=== PATIENT | male | born 1990 | race Caucasian/White ===

== ENCOUNTER 2025-05-27 02:54 | Emergency (ER) | payer OTHER, MEDICAID ==
[~2025-05-27] VITALS: Ht 170.2 cm; Wt 90.3 kg
[2025-05-27] MEDS ORDERED: MORPHINE 2 MG/ML 1 ML VIAL IV PRN (03:25)
[2025-05-27 03:42] LABS: BASO # 0.1 10^3/uL (0.0-0.2); BASO % 0.6 % (0.0-1.0); EOS # 0.0 10^3/uL (0.0-0.5); EOS % 0.0 % (0.0-3.0); LYMPH # 0.7 10^3/uL (1.5-5.0); LYMPH % 7.7 % (24.0-44.0); MONO # 0.6 10^3/uL (0.0-0.8); MONO % 7.2 % (2.0-8.0); NEUTROPHILS # 7.5 10^3/uL (1.5-8.5); NEUTROPHILS % 84.2 % (36.0-66.0); PLATELET COUNT, AUTOMATED 202 10^3/uL (150-450)
[2025-05-27 04:07] LABS: ALT/SGPT 24.0 U/L (7.0-40); AST/SGOT 31.0 U/L (<34); CALCIUM LEVEL 8.5 MG/DL (8.5-10.1); CARBON DIOXIDE LEVEL 25.0 MMOL/L (20-31); CHLORIDE LEVEL 106.0 MMOL/L (98-107); CREATININE FOR GFR 1.34 MG/DL (0.70-1.30); GLOMERULAR FILTRATION RATE 70.4 (>60); POTASSIUM SERUM 4.1 MMOL/L (3.5-5.1); SODIUM LEVEL 143.0 MMOL/L (136-145)
[2025-05-27] MEDS: MORPHINE 4 MG/ML 1 ML VIAL IV PRN (04:15)
[2025-05-27 06:15] VITALS: BP 141/87; TEMP 98.9; O2SAT 97
[2025-05-27] MEDS: NEOSPORIN OINT 0.9 GM PKT TOP ONE (06:21)
[2025-05-27] MEDS: traMADol 50 MG TAB (HOME DOSE PACK) PO ONE (06:21)
[2025-05-27] MEDS: TETANUS/DIPHTH/ACEL. PERTUSSIS 0.5 ML SYR IM.IMMUN ONE (06:22)
== END 2025-05-27 06:35 | disposition home or self-care (01) ==
LOC: M ED 02:54
DX: S70.12XA Contusion of left thigh, initial encounter (principal); S80.212A Abrasion, left knee, initial encounter; S60.222A Contusion of left hand, initial encounter; V86.56XA Driver of dirt bike or motor/cross bike injured in nontraffic accident, initial encounter; M50.322 Other cervical disc degeneration at C5-C6 level; M50.323 Other cervical disc degeneration at C6-C7 level; M25.78 Osteophyte, vertebrae; Y92.009 Unspecified place in unspecified non-institutional (private) residence as the place of occurrence of the external cause; Y93.89 Activity, other specified; Y99.9 Unspecified external cause status